=== PATIENT | male | born 1955 | race Caucasian/White ===

== ENCOUNTER → 2017-03-03 | Outpatient (CLI) | payer BC ==
--- NOTE | 2017-03-03 09:46 | DIAGNOSTIC IMAGING REPORT ---
GI SERIES W/AIR ROUTINE CLINICAL HISTORY: 61 years-old Male with HIATUS HERNIA. Prior hiatal hernia repair. Recent endoscopy with Pennington's esophagus TECHNIQUE: A standard air contrast upper GI series was performed following administration of barium and effervescent crystals. Multiple spot fluoroscopic images were obtained and provided for review. COMPARISON STUDY: None available FLUOROSCOPY TIME: 2.0 minutes. FINDINGS: The patient swallowed barium without difficulty. No aspiration was definitively visualized. The esophagus distended normally with barium and effervescent crystals. Postsurgical changes of the stomach from prior Winifred fundoplication. The entire Winifred wrap appears to be above the level of the diaphragm. There is a large portion of the stomach which is extruded along the right lateral margin of the wrap as seen on image 20 of 23 suggesting failed fundoplication. The distal esophagus is patulous. There was significant gastroesophageal reflux which extended to the upper thoracic esophagus. Barium was seen to flow freely through the gastroesophageal junction. Evaluation of the stomach demonstrates no gastric mucosal irregularity or filling defect. The duodenal bulb and sweep appear unremarkable. IMPRESSION: Prior Winifred fundoplication with findings as above suggesting failed Winifred wrap with patulous distal esophagus and significant gastroesophageal reflux The above report was generated using voice recognition software. It may contain grammatical, syntax or spelling errors. Electronically signed by: Dejuan Bustillos M.D. 03/03/2017 9:44 AM Dictated Date/Time: 03/03/2017 9:25 AM
== END | disposition home or self-care (01) ==
LOC: C.RAD 08:25
PROVIDERS: ATTEND Surgery
DX: K44.9 Diaphragmatic hernia without obstruction or gangrene (principal); K21.9 Gastro-esophageal reflux disease without esophagitis; Z98.890 Other specified postprocedural states

== ENCOUNTER 2017-06-22 01:58 | Emergency (ER) | payer BC, OTHER ==
[~2017-06-22] VITALS: Ht 180.3 cm; Wt 110.8 kg
--- NOTE | 2017-06-22 02:06 | EMERGENCY ROOM VISIT NOTE ---
History Report prepared by Shola: Negrito Macias Under the Supervision of: Dr. Azucena yDe M.D. First contact with patient: 02:03 Stated Complaint: SYNCOPE/GI BLEED History of Present Illness The patient is a 62 year old male who presents to the Emergency Room brought in by EMS with complaints of episodic vomiting x3 with bright red blood about one hour ago. He recently had an ablation treatment for Pennington's Esophagus on June 10, 2017. The patient notes that he got up to go to the bathroom and then passed out. He was incontinent of formed stool. He notes that when he came to he began vomiting bright red blood. He reports being incontinent of his stool. Per EMS, the patient had 3 syncopal episodes en route to the ED with additional hematemesis. He denies any liver problems or other underlying medical problems. Source of History: patient Onset: one hour ago Position: other (general) Quality: other (vomiting blood) Timing: other (episodic) Associated Symptoms: + LOC Note: He notes syncope and incontinent of his stool Review of Systems See HPI for pertinent positives & negatives. A total of 10 systems reviewed and were otherwise negative. Past Medical & Surgical Medical Problems: (1) Pennington esophagus Surgical Problems: (1) History of prior ablation treatment Family History No pertinent family history Social History Marital Status: Housing Status: lives with significant other Occupation Status: employed Current/Historical Medications Scheduled Ascorbic Acid (Vitamin C), 250 MG PO DAILY Cholecalciferol (Vitamin D3), 1 TAB PO DAILY [place]-3 Fatty Acids (Fish Oil 1200 mg), 1 CAP PO BID Omeprazole (Prilosec), 40 MG PO DAILY Sucralfate (Carafate), 1 GM PO QID Vitamin E (Vitamin E 400 Iu), 400 INTER.UNIT PO DAILY Allergies Coded Allergies: No Known Allergies (Unverified , 06/22/17) Physical Exam Vital Signs Date Time Temp Pulse Resp B/P (MAP) Pulse Ox O2 Delivery O2 Flow Rate FiO2 06/22/17 04:38 36.8 70 20 119/68 97 06/22/17 04:11 70 20 119/68 97 Nasal Cannula 2.0 06/22/17 03:51 71 21 129/70 97 Nasal Cannula 2.0 06/22/17 02:46 110/76 06/22/17 02:44 109/78 06/22/17 02:31 97/56 06/22/17 02:30 68 15 96 Nasal Cannula 2.0 06/22/17 02:24 106/61 06/22/17 02:13 74 06/22/17 02:08 36.8 75 18 123/70 89 Room Air 06/22/17 02:01 123/70 Physical Exam Vital signs reviewed. General: Pale-appearing, clammy, in no significant distress. Noted to be mildly hypotensive. Emesis basin with bright red blood. HEENT: No scleral icterus, PERRLA, neck supple. Atraumatic. Pale conjunctiva. Old blood in the mouth. Cardiovascular: Regular rate and rhythm, no extra sounds. Pulmonary: Clear to auscultation bilaterally, normal work of breathing. Abdomen: Soft, nontender, nondistended, positive bowel sounds. Musculoskeletal: Atraumatic, no peripheral edema. Dried blood noted to anterior chest wall Neurologic: Patient awake alert and oriented x 3 Skin: Warm, dry, no rash Medical Decision & Procedures ER Provider Diagnostic Interpretation: Radiology results as stated below per my review and radiologist interpretation: CHEST ONE VIEW PORTABLE CLINICAL HISTORY: Syncope. Upper gastrointestinal hemorrhage. COMPARISON STUDY: 02/26/2016 FINDINGS: The heart is at the upper limits of normal in size. There is a retrocardiac opacity consistent with a hiatal hernia. There are linear by basilar opacities, likely represent subsegmental atelectasis. There is no failure. There are no pleural effusions. There is no free intraperitoneal air. IMPRESSION: 1. Bibasilar subsegmental atelectatic change Electronically signed by: Amos Todd M.D. 06/22/2017 6:42 AM Dictated Date/Time: 06/22/2017 6:41 AM Laboratory Results 06/22/17 02:10 Red Blood Count 3.89, Mean Corpuscular Volume 91.3, Mean Corpuscular Hemoglobin 30.8, Mean Corpuscular Hemoglobin Concent 33.8, Mean Platelet Volume 9.0, Neutrophils (%) (Auto) 77.9, Lymphocytes (%) (Auto) 15.9, Monocytes (%) (Auto) 4.4, Eosinophils (%) (Auto) 1.4, Basophils (%) (Auto) 0.1, Neutrophils # (Auto) 11.27, Lymphocytes # (Auto) 2.30, Monocytes # (Auto) 0.64, Eosinophils # (Auto) 0.20, Basophils # (Auto) 0.02 06/22/17 02:10 Test 06/22/17 02:10 06/22/17 02:14 White Blood Count 14.48 K/uL (4.8-10.8) Red Blood Count 3.89 M/uL (4.7-6.1) Hemoglobin 12.0 g/dL (14.0-18.0) Hematocrit 35.5 % (42-52) Mean Corpuscular Volume 91.3 fL (80-100) Mean Corpuscular Hemoglobin 30.8 pg (25-34) Mean Corpuscular Hemoglobin Concent 33.8 g/dl (32-36) Platelet Count 284 K/uL (130-400) Mean Platelet Volume 9.0 fL (7.4-10.4) Neutrophils (%) (Auto) 77.9 % Lymphocytes (%) (Auto) 15.9 % Monocytes (%) (Auto) 4.4 % Eosinophils (%) (Auto) 1.4 % Basophils (%) (Auto) 0.1 % Neutrophils # (Auto) 11.27 K/uL (1.4-6.5) Lymphocytes # (Auto) 2.30 K/uL (1.2-3.4) Monocytes # (Auto) 0.64 K/uL (0.11-0.59) Eosinophils # (Auto) 0.20 K/uL (0-0.5) Basophils # (Auto) 0.02 K/uL (0-0.2) RDW Standard Deviation 45.6 fL (36.4-46.3) RDW Coefficient of Variation 13.6 % (11.5-14.5) Immature Granulocyte % (Auto) 0.3 % Immature Granulocyte # (Auto) 0.05 K/uL (0.00-0.02) Prothrombin Time 10.7 SECONDS (9.0-12.0) Prothromb Time International Ratio 1.0 (0.9-1.1) Activated Partial Thromboplast Time 21.7 SECONDS (21.0-31.0) Partial Thromboplastin Ratio 0.8 Est Creatinine Clear Calc Drug Dose 75.0 ml/min Estimated GFR () 69.4 Estimated GFR (Non- 59.9 BUN/Creatinine Ratio 26.0 (10-20) Calcium Level 8.5 mg/dl (8.5-10.1) Total Bilirubin 0.7 mg/dl (0.2-1) Direct Bilirubin 0.1 mg/dl (0-0.2) Aspartate Amino Transf (AST/SGOT) 10 U/L (15-37) Alanine Aminotransferase (ALT/SGPT) 20 U/L (12-78) Alkaline Phosphatase 40 U/L (45-117) Total Protein 6.4 gm/dl (6.4-8.2) Albumin 3.1 gm/dl (3.4-5.0) Bedside Hemoglobin 11.2 g/dl (14.0-18.0) Bedside Hematocrit 33 % (42-52) Bedside Sodium 140 mEq/L (135-144) Bedside Potassium 3.6 mEq/L (3.3-5.0) Bedside Chloride 102 mEq/L (101-112) Bedside Total CO2 24 mEq/l (24-31) Anion Gap 19.0 mmol/L (16-25) Bedside Blood Urea Nitrogen 31 mg/dl (7-18) Bedside Creatinine 1.2 mg/dl (0.6-1.3) Bedside Glucose (other) 226 mg/dl (70-99) Bedside Ionized Calcium (Leno) 1.14 mmol/l (1.12-1.32) Laboratory results per my review. Medications Administered Medications (Trade) Dose Ordered Sig/Thad Route Start Time Stop Time Status Last Admin Dose Admin Sodium Chloride 1,000 ml @ 125 mls/hr Q8H STAT IV 06/22/17 02:07 06/22/17 05:13 DC 06/22/17 02:07 125 MLS/HR Pantoprazole Sodium 80 mg/ Dextrose 120 ml @ 480 mls/hr NOW STAT IV 06/22/17 02:16 06/22/17 02:30 DC 06/22/17 02:32 480 MLS/HR Pantoprazole Sodium 40 mg/ Dextrose 100 ml @ 20 mls/hr Q5H IV 06/22/17 02:30 06/22/17 05:13 DC 06/22/17 02:32 20 MLS/HR ECG Per My Interpretation Indication: syncope Rate (beats per minute): 76 Rhythm: normal sinus Findings: nonspecific-ST abn, no ectopy ED Course 0200: Past medical records reviewed. The patient was evaluated in room A1. A complete history and physical examination was performed. 0207: Ordered Sodium Chloride 1,000 ml @ 125 mls/hr IV 0210: Ordered Protonix IV Bolus/Drip 1 ea IV 0211: I spoke with Dr. Rosenbaum, regional tanker truck driver. We discussed the patient's case. He recommends continuing resuscitation and they will scope the patient in a few hours. 0216: Ordered Pantoprazole Sodium 80 mg/Dextrose 120 ml @ 480 mls/hr IV 0230: Ordered Pantoprazole Sodium 80 mg/Dextrose 100 ml @ 20 mls/hr IV 0243: I reassessed the patient at this time. He has not vomited while here in the ED. 0317: I spoke with Dr. Rosenbaum, regional tanker truck driver. We discussed the patient's case. He states the surgeon who did the patients surgery accepted the patient for transfer. He spoke with Dr. Priscilla Ac, regional tanker truck driver who accepted the patient. The patient will be transferred to [facility]. 0334: I reassessed the patient at this time. I discussed the results and treatment plan with the patient. I answered all pertaining questions that he had. He expressed understanding and verbalized agreement. The patient will be transferred for further care. 0356: I spoke with Dr. Sams, critical care at [facility]. They accepted the patient. Medical Decision Differential Diagnoses include: UGI bleed secondary to eroded vessel, PUD, polyp This pt was evaluated and appeared to be in no distress. He was noted to have a hypotensive episode in the ED after several syncopal episodes in route. Pt is feeling improved. GI, Dr Rosenbaum was consulted upon arrival. Lab work was pending. Pt was type and crossed for 2 units to hold. ISTAT reveals a stable H /H. The etiology of the sudden bleed is unclear. After d/w GI at [facility] by Dr Rosenbaum transfer to their facility was recommended. The pt was accepted by Dr Sams of the ICU. At this time, ground transportation is several hours until arrival in this ED, making pt's arrival in [place] > 4-5 hours from now. The pt is currently appearing well, making his syncope likely vagal in nature. There is great concern on the part of Dr Rosenbaum, Dr. Priscilla Ac ([facility]) and myself that the pt will become unstable upon a rebleed in the near future. Air transport was requested and the pt was sent to [facility] ICU for further management. He wand his family were aware of the plan and agreed. Medication Reconcilliation Current Medication List: was personally reviewed by me Blood Pressure Screening Patient's blood pressure: Normal blood pressure Consults Time Called: 0208 Consulting Physician: Dr. Rosenbaum, regional tanker truck driver Returned Call: [address] Rosenbaum, regional tanker truck driver. We discussed the patient's case. He recommends continuing resuscitation and they will scope the patient in a few hours. 0317: I spoke with Dr. Rosenbaum, regional tanker truck driver. We discussed the patient's case. He states the surgeon who did the patients surgery accepted the patient for transfer. He spoke with Dr. Priscilla Ac, regional tanker truck driver who accepted the patient. The patient will be transferred to [facility]. Additional Consults: Time Called: 0345 Consulted Physician: Dr. Sams, critical care at [facility] Returned Call: [phone] Additional Comments: I spoke with Dr. Sams, critical care at [facility]. They accepted the patient. Impression Primary Impression: Upper GI bleed Additional Impressions: History of prior ablation treatment Pennington esophagus Critical Care I have personally spent greater than 35 minutes of critical care time in the direct management of this patient. This includes bedside care, interpretation of diagnostic studies, and testing, discussion with consultants, patient, and family members, and other required patient management activities. This 35 minutes is in excess of all separately billable procedures. Scribe Attestation The scribe's documentation has been prepared under my direction and personally reviewed by me in its entirety. I confirm that the note above accurately reflects all work, treatment, procedures, and medical decision making performed by me. Departure Information Dispostion Transfer Acute Care Facility ([facility]) Referrals Lorenza Cabello (PCP) Problem Qualifiers
[2017-06-22] MEDS ORDERED: SODIUM CHLORIDE 0.9% 1000ML 1,000 ML IV STA (02:07)
[2017-06-22 02:08] VITALS: Ht 180.3 cm; Wt 110.8 kg
[2017-06-22] MEDS ORDERED: PANTOprazole INJ 80 MG in DEXTROSE 5% 100ML IV STA (02:16)
[2017-06-22 02:28] LABS: BASO % 0.1 %; BASO ABS # 0.02 K/uL (0-0.2); EOS % 1.4 %; HEMATOCRIT 35.5 % (42-52); IG# 0.05 K/uL (0.00-0.02); LYMPH % 15.9 %; MEAN CELL VOLUME 91.3 fL (80-100); MEAN CORPUSCULAR HEMOGLOBIN 30.8 pg (25-34); MEAN CORPUSCULAR HGB CONC 33.8 g/dl (32-36); MONO % 4.4 %; MONO ABS # 0.64 K/uL (0.11-0.59); NEUT % 77.9 %; NEUT ABS # 11.27 K/uL (1.4-6.5); PLATELET COUNT 284 K/uL (130-400); RED CELL DISTRIBUTION WIDTH CV 13.6 % (11.5-14.5); RED CELL DISTRIBUTION WIDTH SD 45.6 fL (36.4-46.3); WHITE BLOOD COUNT 14.48 K/uL (4.8-10.8)
[2017-06-22 02:29] LABS: ISTAT CREATININE 1.2 mg/dl (0.6-1.3); ISTAT IONIZED CALCIUM 1.14 mmol/l (1.12-1.32); ISTAT POTASSIUM 3.6 mEq/L (3.3-5.0)
[2017-06-22] MEDS ORDERED: PANTOprazole INJ 40 MG in DEXTROSE 5% 100ML IV SCH (02:30)
[2017-06-22 02:34] LABS: PTT PATIENT 21.7 SECONDS (21.0-31.0)
[2017-06-22] MEDS ORDERED: CHOL1000 PO (02:42)
[2017-06-22] MEDS ORDERED: ASCO250T4 PO (02:42)
[2017-06-22] MEDS ORDERED: PRLSR20 PO (02:42)
[2017-06-22] MEDS ORDERED: SUCR1TAB29 PO (02:42)
[2017-06-22] MEDS ORDERED: VITA400C3 PO (02:42)
[2017-06-22] MEDS ORDERED: OMEG5CAP PO (02:42)
[2017-06-22 02:48] LABS: ALBUMIN 3.1 gm/dl (3.4-5.0); CALCIUM 8.5 mg/dl (8.5-10.1); CREATININE 1.26 mg/dl (0.60-1.40); POTASSIUM 3.6 mmol/L (3.5-5.1)
[2017-06-22 02:51] LABS: TOTAL PROTEIN 6.4 gm/dl (6.4-8.2)
--- NOTE | 2017-06-22 03:36 | Gastrointestinal Consultation ---
Gastrointestinal Consultation Date of Consultation: Jun 22, 2017 History of Present Illness Patient is a 62 year old male with a history of Pennington's esophagus with dysplasia who presented for open access endoscopy and [place] in June 12. He underwent nitrous oxide balloon cryoablation therapy for C4M5 Pennington's esophagus. Since that time he has had this difficulty swallowing. This evening he went to bed and woke up in the middle night with crampy pain in his lower chest. He then went to the bathroom felt very dizzy lightheaded, had bright red hematemesis and then his said that he just melted into the floor. He had several episodes of hematemesis at home she called EMS, and, transferred to [facility]. While in the ER transport he again had 2-3 bouts of hematemesis and had syncopal /presyncopal events. Although I am unaware if he was hypertensive during his episodes. Here in the emergency room he has been started on IV fluids resuscitated, he is awake and alert, has had no further vomiting of blood since in the ER. No pain, no fevers, chills, he does have a history a lap band and is thinking having it removed. In the ER his BP is 118/70 and HR is 65-75 Hb is 12 and INR is 1. I spoke with [facility] in regards to bleeding after ablation procedure, given the complexity of recent ablation, possible stricture complication afterwards, they have requested him to be transferred. Patient is agreeable. Past Medical/Surgical History Obesity Lap gastric band Past Surgical History: Lap gastric band Social History Smoking Status: Never Smoker Allergies Coded Allergies: No Known Allergies (Unverified , 06/22/17) Current Medications Home Meds and Scripts Medications Dose Route/Sig Max Daily Dose Days Date Category Vitamin D3 (Cholecalciferol) 1,000 Unit Tab 1 Tab PO DAILY 06/22/17 Reported Vitamin E 400 Iu (Vitamin E) 400 Unit Cap 400 Inter.unit PO DAILY 06/22/17 Reported Vitamin C (Ascorbic Acid) 250 Mg Tab 250 Mg PO DAILY 06/22/17 Reported Prilosec (Omeprazole) 20 Mg Capcr 40 Mg PO DAILY 06/22/17 Reported Carafate (Sucralfate) 1 Gm Tab 1 Gm PO QID 06/22/17 Reported Fish Oil 1200 mg ([place]-3 Fatty Acids) 1 Cap Cap 1 Cap PO BID 06/22/17 Reported Review of Systems Constitutional: + see HPI Eyes: No see HPI, No worsening of vision, No eye pain, No redness, No discharge , No diplopia, No problem reported ENT: No see HPI, No hearing loss, No unusual epistaxis, No nasal symptoms, No sore throat, No tinnitus, No dental problems, No trouble swallowing, No pain on swallowing, No problem reported Respiratory: No see HPI, No cough, No sputum, No wheezing, No shortness of breath, No dyspnea on exertion, No dyspnea at rest, No hemoptysis, No problem reported Cardiac: No see HPI, No chest pain, No orthopnea, No PND, No edema, No claudication, No palpitations, No problem reported Musculoskeletal: No see HPI, No joint pain, No muscle pain, No swelling, No calf pain, No problem reported Male : No see HPI, No dysuria, No urinary frequency, No incontinence, No nocturia more than once/night, No slowing stream, No hematuria, No sexual dysfunction, No problem reported Physical Exam Date Time Temp Pulse Resp B/P (MAP) Pulse Ox O2 Delivery O2 Flow Rate FiO2 06/22/17 02:46 110/76 06/22/17 02:44 109/78 06/22/17 02:31 97/56 06/22/17 02:30 68 15 96 Nasal Cannula 2.0 06/22/17 02:24 106/61 06/22/17 02:13 74 06/22/17 02:08 36.8 75 18 123/70 89 Room Air 06/22/17 02:01 123/70 General Appearance: WD/WN Respiratory/Chest: chest non-tender, lungs clear, normal breath sounds Cardiovascular: regular rate, rhythm, no edema, no gallop Abdomen: normal bowel sounds, non tender, soft, no organomegaly Extremities: normal range of motion, non-tender Neurologic/Psych: hospital medicine director II-XII nml as tested, no motor/sensory deficits Skin: normal color Laboratory Results Last 24 Hours Test 06/22/17 02:10 06/22/17 02:14 White Blood Count 14.48 K/uL Red Blood Count 3.89 M/uL Hemoglobin 12.0 g/dL Hematocrit 35.5 % Mean Corpuscular Volume 91.3 fL Mean Corpuscular Hemoglobin 30.8 pg Mean Corpuscular Hemoglobin Concent 33.8 g/dl Platelet Count 284 K/uL Mean Platelet Volume 9.0 fL Neutrophils (%) (Auto) 77.9 % Lymphocytes (%) (Auto) 15.9 % Monocytes (%) (Auto) 4.4 % Eosinophils (%) (Auto) 1.4 % Basophils (%) (Auto) 0.1 % Neutrophils # (Auto) 11.27 K/uL Lymphocytes # (Auto) 2.30 K/uL Monocytes # (Auto) 0.64 K/uL Eosinophils # (Auto) 0.20 K/uL Basophils # (Auto) 0.02 K/uL RDW Standard Deviation 45.6 fL RDW Coefficient of Variation 13.6 % Immature Granulocyte % (Auto) 0.3 % Immature Granulocyte # (Auto) 0.05 K/uL Prothrombin Time 10.7 SECONDS Prothromb Time International Ratio 1.0 Activated Partial Thromboplast Time 21.7 SECONDS Partial Thromboplastin Ratio 0.8 Sodium Level 138 mmol/L Potassium Level 3.6 mmol/L Chloride Level 106 mmol/L Carbon Dioxide Level 26 mmol/L Anion Gap 6.0 mmol/L 19.0 mmol/L Blood Urea Nitrogen 33 mg/dl Creatinine 1.26 mg/dl Est Creatinine Clear Calc Drug Dose 75.0 ml/min Estimated GFR () 69.4 Estimated GFR (Non- 59.9 BUN/Creatinine Ratio 26.0 Random Glucose 218 mg/dl Calcium Level 8.5 mg/dl Total Bilirubin 0.7 mg/dl Direct Bilirubin 0.1 mg/dl Aspartate Amino Transf (AST/SGOT) 10 U/L Alanine Aminotransferase (ALT/SGPT) 20 U/L Alkaline Phosphatase 40 U/L Total Protein 6.4 gm/dl Albumin 3.1 gm/dl Bedside Hemoglobin 11.2 g/dl Bedside Hematocrit 33 % Bedside Sodium 140 mEq/L Bedside Potassium 3.6 mEq/L Bedside Chloride 102 mEq/L Bedside Total CO2 24 mEq/l Bedside Blood Urea Nitrogen 31 mg/dl Bedside Creatinine 1.2 mg/dl Bedside Glucose (other) 226 mg/dl Bedside Ionized Calcium (Leno) 1.14 mmol/l Impression Patient is a 62 year old male presented with hematemesis after recent Pennington's esophagus ablation. Discussed the case with physician who performed the most recent endoscopy in [place] who is on-call tonight, given the complexity of the ablation therapy in the setting of bleeding, which is uncommon, they requested him to be transferred there. We are arranging for that now. Plan IV PPI N.p.o. Transfer to tertiary center
[2017-06-22 04:38] VITALS: BP 119/68; PULSE 70; TEMP 36.8; O2SAT 97
--- NOTE | 2017-06-22 06:43 | DIAGNOSTIC IMAGING REPORT ---
CHEST ONE VIEW PORTABLE CLINICAL HISTORY: Syncope. Upper gastrointestinal hemorrhage. COMPARISON STUDY: 02/26/2016 FINDINGS: The heart is at the upper limits of normal in size. There is a retrocardiac opacity consistent with a hiatal hernia. There are linear by basilar opacities, likely represent subsegmental atelectasis. There is no failure. There are no pleural effusions. There is no free intraperitoneal air.[ IMPRESSION: 1. Bibasilar subsegmental atelectatic change Electronically signed by: Amos Todd M.D. 06/22/2017 6:42 AM Dictated Date/Time: 06/22/2017 6:41 AM
== END 2017-06-22 04:38 | disposition short-term general hospital (02) ==
LOC: EDBD 01:58 → C.EDA 01:59
DX: K92.2 Gastrointestinal hemorrhage, unspecified (principal); K22.70 Barrett's esophagus without dysplasia; Z98.890 Other specified postprocedural states; Z98.84 Bariatric surgery status